=== PATIENT | female | born 1975 | race Asian ===

== ENCOUNTER → 2023-12-04 13:33 | Outpatient (REF) | payer BC, SELFPAY | LOC: HWRAD 13:33 | PROVIDERS: ATTENDING PHYSICIAN Obstetrics & Gynecology Gynecology; FAMILY PHYSICIAN Nurse Practitioner | DX: Z30.431 Encounter for routine checking of intrauterine contraceptive device (principal); Z12.31 Encounter for screening mammogram for malignant neoplasm of breast | CPT/HCPCS: 76830; 76856; 77063; 77067 ==

== ENCOUNTER → 2023-12-19 16:48 | Outpatient (REF) | payer BC, SELFPAY | LOC: HWRAD 16:48 | PROVIDERS: ATTENDING PHYSICIAN Obstetrics & Gynecology; FAMILY PHYSICIAN Nurse Practitioner | DX: Z30.431 Encounter for routine checking of intrauterine contraceptive device (principal) | CPT/HCPCS: 72170; 74018 ==

== ENCOUNTER → 2025-04-21 12:22 | Outpatient (REF) | payer BC, SELFPAY | LOC: HWWDC 12:22 | PROVIDERS: ATTENDING PHYSICIAN Nurse Practitioner Adult Health | DX: Z12.31 Encounter for screening mammogram for malignant neoplasm of breast (principal) | CPT/HCPCS: 77063; 77067 ==